=== PATIENT | female | born 1955 | race Caucasian/White ===

== ENCOUNTER 2023-06-17 03:25 | Emergency (ER) | payer OTHER, MEDICAID ==
[~2023-06-17] VITALS: Ht 144.8 cm; Wt 68.0 kg
[2023-06-17 03:31] VITALS: BP 125/77; PULSE 94; RESP 16; TEMP 97.2; O2SAT 92
[2023-06-17 03:59] VITALS: BP 131/84; PULSE 72; RESP 19
[2023-06-17 04:00] VITALS: O2SAT 95
== END 2023-06-17 06:12 | disposition home or self-care (01) ==
LOC: MED 03:25
DX: S01.111A Laceration without foreign body of right eyelid and periocular area, initial encounter (principal); S09.90XA Unspecified injury of head, initial encounter; E78.5 Hyperlipidemia, unspecified; I10 Essential (primary) hypertension; Z79.899 Other long term (current) drug therapy; W18.30XA Fall on same level, unspecified, initial encounter; Y93.89 Activity, other specified; Y92.89 Other specified places as the place of occurrence of the external cause; Y99.8 Other external cause status
CPT/HCPCS: 12011; 70450; 70486; 72125; 73502; 90471; 90715; 99285; Q0092